=== PATIENT | female | born 1995 | race Caucasian/White ===

== ENCOUNTER 2016-05-27 18:27 | Emergency (ER) | payer SELFPAY | END 2016-05-27 20:25 | disposition left against medical advice (07) | LOC: ER 18:27 | DX: Z53.21 Procedure and treatment not carried out due to patient leaving prior to being seen by health care provider (principal) ==

== ENCOUNTER 2016-05-30 09:41 | Emergency (ER) | payer SELFPAY ==
[2016-05-30 10:07] VITALS: BP 92/65; TEMP 98.9; O2SAT 100
--- NOTE | 2016-05-30 10:07 | ED.PDOC ---
History of Present Illness - General Chief Complaint: GI Problem Stated Complaint: nausea, vomiting, fever Time Seen by Provider: 05/30/16 09:59 Source: patient Exam Limitations: no limitations - History of Present Illness Initial Comments: Patient presents with N/V that developed overnight. Her last episode was 5 hours ago. She was able to eat breakfast. She has some cramping pain that is umbilical, intermittent, non-radiating, and not associated with the N/V. No diarrhea. Vomitus is yellow and mucous-like. No previous abdominal surgeries. No similarly sick contacts. No new eating establishments, camping, nor travel. Patient said she called in to work this morning so she could take the day off and was told she needed a doctor's note. No other complaints. Timing/Duration: 4-6 hours Severity: mild Improving Factors: nothing Worsening Factors: nothing Associated Symptoms: nausea/vomiting Allergies/Adverse Reactions: Allergies NO KNOWN ALLERGY Allergy (Verified 10/31/15 21:29) Home Medications: Ambulatory Orders Amoxicillin & Pot Clavulanate [Augmentin Tab] 875 mg PO BID #20 tab 02/24/16 Montelukast Sodium [Singulair] 10 mg PO DAILY #30 tab 02/24/16 Ondansetron Tab [Zofran Tab] 4 mg PO Q6HR #7 tab 05/30/16 Review of Systems - Review of Systems Constitutional: States: no symptoms reported EENTM: States: no symptoms reported Respiratory: States: no symptoms reported Cardiology: States: no symptoms reported Gastrointestinal/Abdominal: States: see HPI Genitourinary: States: no symptoms reported Musculoskeletal: States: no symptoms reported Skin: States: no symptoms reported Neurological: States: no symptoms reported Endocrine: States: no symptoms reported Hematologic/Lymphatic: States: no symptoms reported Past Medical History (General) - Patient Medical History Hx Seizures: No Hx Stroke: No Hx Dementia: No Hx Asthma: No Hx of COPD: No Hx Cardiac Disorders: No Hx Congestive Heart Failure: No Hx Pacemaker: No Hx Hypertension: No Hx Thyroid Disease: No Hx Diabetes: No Hx Gastroesophageal Reflux: No Hx Renal Disease: No Hx Cancer: No Hx of HIV: No Hx Hepatitis C: No Hx MRSA: No - Vaccination History Hx Tetanus, Diphtheria Vaccination: No Hx Influenza Vaccination: No Hx Pneumococcal Vaccination: No - Social History Hx Tobacco Use: No Hx Chewing Tobacco Use: No Hx Alcohol Use: No Hx Substance Use: No Hx Substance Use Treatment: No Hx Depression: No Hx Physical Abuse: No Hx Emotional Abuse: No Hx Suspected Abuse: No - Female History Hx Last Menstrual Period: 10/19/15 Patient : No Expected Date of Delivery:: 11/28/14 Hx Gestational Age: 13 Family Medical History - Family History Maternal Family History: Unknown Hx Family Diabetes: Yes Hx Family;Other: aunt on mother side Brother Family History: No Known Living Status: Still Living Hx Family;Other: no problems Mother Family History: No Known Name: Cathy Age (years): 47 Living Status: Still Living Hx Family;Other: no medical problems Physical Exam - Physical Exam General Appearance: Alert Respiratory: lungs clear Cardiovascular/Chest: regular rate, rhythm Gastrointestinal/Abdominal: normal bowel sounds, non tender, soft, other - Negative Rovsing's sign. Negative Valentine's . NTTP. Negative obturator and psoas signs. Extremity: normal range of motion Skin Exam: normal color Lymphatic: no adenopathy Departure - Departure Clinical Impression: Gastroenteritis Disposition: Discharge to Home or Self Care Condition: Good Departure Forms: ED Discharge - Pt. Copy, Patient Portal Self Enrollment Diet: resume usual diet Prescriptions: Ondansetron Tab [Zofran Tab] 4 mg PO Q6HR #7 tab Home Medications: Ambulatory Orders Amoxicillin & Pot Clavulanate [Augmentin Tab] 875 mg PO BID #20 tab 02/24/16 Montelukast Sodium [Singulair] 10 mg PO DAILY #30 tab 02/24/16 Ondansetron Tab [Zofran Tab] 4 mg PO Q6HR #7 tab 05/30/16 Additional Instructions: Increase oral fluids. Return to ER if vomiting continues more than 48 hours without the development of diarrhea. Return to ER or your regular doctor if symptoms persist longer than 5 days.
== END 2016-05-30 10:20 | disposition home or self-care (01) ==
LOC: ER 09:41
DX: K52.9 Noninfective gastroenteritis and colitis, unspecified (principal)

== ENCOUNTER → 2016-07-08 | Outpatient (CLI) | payer OTHER ==
--- NOTE | 2016-07-08 12:40 | RAD ---
History: Pain. Pelvis: AP film is obtained. No bony abnormality or acute injury. Joint spaces appear well maintained. IUD is in place. Sacroiliac joints are normal. IMPRESSION: Negative pelvis. Right knee: AP, standing, lateral and sunrise views are obtained and compared with 2012 study. Large osteochondroma, questioned partially resected as it appears smaller since the prior film. No significant joint effusion. Joint spaces are well-maintained. IMPRESSION: Smaller osteochondroma since 2012, questioned surgical resection. No complication. Electronically signed by: Tatiana Mcginnis MD 07/08/2016 12:39 PM CDT
== END | disposition home or self-care (01) ==
LOC: RAD 08:01
PROVIDERS: ATTEND Orthopaedic Surgery
DX: M25.561 Pain in right knee (principal); M25.551 Pain in right hip

== ENCOUNTER → 2016-07-30 | Outpatient (CLI) | payer OTHER ==
--- NOTE | 2016-07-30 16:33 | MRI ---
MRI right knee without contrast INDICATION: Knee mass TECHNIQUE: Noncontrast MR imaging right knee standard protocol FINDINGS: There is distortion of the ACL from previous injury or related to the adjacent femoral deformity more likely. The PCL is intact. There is a flipped bucket-handle lateral meniscal tear with prominent meniscal tissue in the intercondylar region. Collateral ligaments are intact. Normal patellofemoral alignment. Moderate joint effusion. There is a large osteochondroma extending posteriorly from the distal femur. There is a dominant osteochondroma extending posterior medially. There appears to be an additional osteochondroma arising from the lateral margin of the base of the larger osteochondroma extending toward the joint abutting the cortex of the posterior margin lateral femoral condyle. This is an atypical morphology but does not appear aggressive or destructive. The cartilage cap on the larger posterior medial osteochondroma is approximately 3 mm thick. There is adjacent marrow edema which may be due to trauma/friction but follow-up imaging would be useful to exclude the less likely possibility of malignant degeneration within the large osteochondroma. There is no mass effect or displacement of the popliteal vessels. No additional internal derangement. The multifocal/irregular osteochondroma could be related to underlying multiple hereditary exostosis syndrome consider skeletal survey to assess for other lesions. IMPRESSION: Bucket-handle tear lateral meniscus right knee with moderate effusion Multifocal osteochondromas distal femur with edema within the larger posterior medial osteochondroma but no focal soft tissue mass or marked thickening of the cartilage cap see above discussion and recommendations Electronically signed by: Jw Villalba MD 07/30/2016 4:32 PM CDT
== END | disposition home or self-care (01) ==
LOC: MRI 06:58
PROVIDERS: ATTEND Orthopaedic Surgery
DX: S83.252A Bucket-handle tear of lateral meniscus, current injury, left knee, initial encounter (principal); X58.XXXA Exposure to other specified factors, initial encounter

== ENCOUNTER 2016-09-26 13:06 | Emergency (ER) | payer SELFPAY ==
[2016-09-26 13:17] VITALS: BP 102/61; TEMP 99.3
--- NOTE | 2016-09-26 13:49 | ED.PDOC ---
History of Present Illness - General Chief Complaint: ENT Problem Stated Complaint: sorethroat, fever Time Seen by Provider: 09/26/16 13:39 Source: patient Exam Limitations: no limitations - History of Present Illness Initial Comments: Patient presents with sore throat, fever, and body aches for three days. She denies runny nose or cough. She is not aware of sick contacts. She says that her lymph nodes are swollen. No other complaints. Timing/Duration: other - 3 days Severity: moderate Improving Factors: nothing Worsening Factors: nothing Associated Symptoms: fever/chills Allergies/Adverse Reactions: Allergies NO KNOWN ALLERGY Allergy (Verified 09/26/16 13:17) Home Medications: Ambulatory Orders Amoxicillin [Amoxil] 500 mg PO TID #30 cap 09/26/16 Review of Systems - Review of Systems Constitutional: States: fever EENTM: States: see HPI Respiratory: States: no symptoms reported Cardiology: States: no symptoms reported Gastrointestinal/Abdominal: States: no symptoms reported Genitourinary: States: no symptoms reported Musculoskeletal: States: no symptoms reported Skin: States: no symptoms reported Neurological: States: no symptoms reported Endocrine: States: no symptoms reported Hematologic/Lymphatic: States: no symptoms reported Past Medical History (General) - Patient Medical History Hx Seizures: No Hx Stroke: No Hx Dementia: No Hx Asthma: No Hx of COPD: No Hx Cardiac Disorders: No Hx Congestive Heart Failure: No Hx Pacemaker: No Hx Hypertension: No Hx Thyroid Disease: No Hx Diabetes: No Hx Gastroesophageal Reflux: No Hx Renal Disease: No Hx Cancer: No Hx of HIV: No Hx Hepatitis C: No Hx MRSA: No Surgical History: no surgical history - Vaccination History Hx Tetanus, Diphtheria Vaccination: No Hx Influenza Vaccination: No Hx Pneumococcal Vaccination: No - Social History Hx Tobacco Use: Yes Hx Chewing Tobacco Use: No Hx Alcohol Use: No Hx Substance Use: No Hx Substance Use Treatment: No Hx Depression: No Hx Physical Abuse: No Hx Emotional Abuse: No Hx Suspected Abuse: No - Activities of Daily Living Hospice Agency (if applicable):: None - Female History Patient is a Female of Child Bearing Age (10 -59 yrs old): Yes Hx Last Menstrual Period: 10/19/15 Patient : No Expected Date of Delivery:: 11/28/14 Hx Gestational Age: 13 Family Medical History - Family History Maternal Family History: Unknown Hx Family Diabetes: Yes Hx Family;Other: aunt on mother side Brother Family History: No Known Living Status: Still Living Hx Family;Other: no problems Mother Family History: No Known Name: Cathy Age (years): 47 Living Status: Still Living Hx Family;Other: no medical problems Physical Exam - Physical Exam General Appearance: Alert Ears, Nose, Throat: normal ENT inspection Neck: non-tender, full range of motion, supple Respiratory: lungs clear Cardiovascular/Chest: normal peripheral pulses, regular rate, rhythm Gastrointestinal/Abdominal: normal bowel sounds, non tender, soft Skin Exam: normal color Lymphatic: other - right anterior cervical LAD. NT. mobile, fluctuatnt, less than 1 cm Progress - Progress Progress: 09/26/16 13:49 Rapid strep positive. Patient opted for oral medications instead of IM. Departure - Departure Clinical Impression: Streptococcal pharyngitis Disposition: Discharge to Home or Self Care Condition: Good Departure Forms: ED Discharge - Pt. Copy, ED Discharge - Work Release, Patient Portal Self Enrollment Diet: resume usual diet Activity: increase activity as tolerated Referrals: America Barbosa NP [Primary Care Provider] - 1-2 Weeks Prescriptions: Amoxicillin [Amoxil] 500 mg PO TID #30 cap Home Medications: Ambulatory Orders Amoxicillin [Amoxil] 500 mg PO TID #30 cap 09/26/16 Additional Instructions: May use over the counter throat sprays or lozenges. Take prescription medication as directed. Wash hands before and after contact with others. Return to your regular doctor if symptoms have not resolved in 7-10 days.
[2016-09-26 13:59] VITALS: O2SAT 97
== END 2016-09-26 14:00 | disposition home or self-care (01) ==
LOC: ER 13:06
DX: J02.0 Streptococcal pharyngitis (principal); Z87.891 Personal history of nicotine dependence

== ENCOUNTER → 2016-10-21 | Outpatient (CLI) | payer OTHER | END | disposition home or self-care (01) | LOC: RESP 09:07 | PROVIDERS: ATTEND Orthopaedic Surgery | DX: Z01.818 Encounter for other preprocedural examination (principal) ==

== ENCOUNTER 2016-10-27 05:54 | Outpatient (CLI) | payer OTHER ==
[~2016-10-27 05:54] MED LIST: LACTATED RINGERS 1,000 ML ONE; SODIUM CHL 0.9% 50ML MIN-BAG+ 50 ML IVPB ONE; ceFAZolin SODIUM 1 GM VIAL ONE
[2016-10-27] MEDS ORDERED: VANCOMYCIN HCL INJ 1,000 MG VIAL IVPB ONE (06:15)
[2016-10-27] MEDS ORDERED: BUPIVACAINE 0.25% W/EPI 50 ML VIAL INJ ONE (06:15)
[2016-10-27] MEDS ORDERED: ceFAZolin SODIUM 1 GM VIAL ONE ×2 (06:15→06:16)
[2016-10-27] MEDS ORDERED: fentaNYL CITRATE INJ 50 MCG/ML AMP ONE (06:18)
[2016-10-27 07:34] VITALS: BP 104/74; TEMP 98.2; O2SAT 100
== END 2016-10-27 07:05 | disposition home or self-care (01) ==
LOC: AMB 05:54 → EDSTATUS 10:30
PROVIDERS: ATTEND Orthopaedic Surgery
DX: Z01.818 Encounter for other preprocedural examination (principal); D16.21 Benign neoplasm of long bones of right lower limb

== ENCOUNTER 2017-01-08 10:03 | Emergency (ER) | payer SELFPAY ==
[2017-01-08 10:31] VITALS: BP 109/72; TEMP 97.1; O2SAT 99
--- NOTE | 2017-01-08 10:45 | ED.PDOC ---
History of Present Illness - General Chief Complaint: General Stated Complaint: screening for chicken pox Time Seen by Provider: 01/08/17 10:05 Source: patient Exam Limitations: no limitations - History of Present Illness Initial Comments: the patient is a 21-year-old female presenting to the emergency room after having sustained a needle stick this morning while caring for patient. The patient is an 84-year-old male with no known history of hepatitis C, hepatitis B or HIV according to her sources. 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 The patient does currently have a shingles infection. This patient reports that she has had all her vaccines which would include the hepatitis B series as well as the varicella-zoster vaccine. The patient stuck herself with the needle that she used to give him his insulin with. It stuck her in the finger. She immediately rinsed off and cleaned off the area. His injection site did not bleed. Hers bled a very small amount. she herself does not have any history of hepatitis B, C or HIV either. given the history reported her on the patient she defers testing here today for HIV, hep B or hepatitis C. She states that she will get this done at her primary care doctor' s office. I have just reviewed the current CDC guidelines for post exposure prophylaxis. She is in a low risk category. It is still recommended that she get the patient tested as well, and herself retested in a couple of months. Timing/Duration: 1-3 hours Severity: mild Improving Factors: nothing Worsening Factors: nothing Associated Symptoms: denies symptoms Allergies/Adverse Reactions: Allergies NO KNOWN ALLERGY Allergy (Verified 01/08/17 10:31) Review of Systems - Review of Systems Constitutional: States: no symptoms reported EENTM: States: no symptoms reported Respiratory: States: no symptoms reported Cardiology: States: no symptoms reported Gastrointestinal/Abdominal: States: no symptoms reported Genitourinary: States: no symptoms reported Musculoskeletal: States: no symptoms reported Skin: States: see HPI Neurological: States: no symptoms reported Endocrine: States: no symptoms reported Past Medical History (General) - Patient Medical History Hx Seizures: No Hx Stroke: No Hx Dementia: No Hx Asthma: No Hx of COPD: No Hx Cardiac Disorders: No Hx Congestive Heart Failure: No Hx Pacemaker: No Hx Hypertension: No Hx Thyroid Disease: No Hx Diabetes: No Hx Gastroesophageal Reflux: No Hx Renal Disease: No Hx Cancer: No Hx of HIV: No Hx Hepatitis C: No Hx MRSA: No Surgical History: no surgical history - Vaccination History Hx Tetanus, Diphtheria Vaccination: No Hx Influenza Vaccination: No Hx Pneumococcal Vaccination: No - Social History Hx Tobacco Use: Yes Hx Chewing Tobacco Use: No Hx Alcohol Use: Yes - occasional Hx Substance Use: No Hx Substance Use Treatment: No Hx Depression: No Hx Physical Abuse: No Hx Emotional Abuse: No Hx Suspected Abuse: No - Female History Patient is a Female of Child Bearing Age (10 -59 yrs old): Yes Hx Last Menstrual Period: 10/19/15 Patient : No - has IUD Expected Date of Delivery:: 11/28/14 Hx Gestational Age: 13 Family Medical History - Family History Maternal Family History: Unknown Hx Family Diabetes: Yes Hx Family;Other: aunt on mother side Brother Family History: No Known Living Status: Still Living Hx Family;Other: no problems Mother Family History: No Known Name: Cathy Age (years): 47 Living Status: Still Living Hx Family;Other: no medical problems Physical Exam - Physical Exam General Appearance: Alert, Anxious, No apparent distress Eye Exam: bilateral normal Ears, Nose, Throat: hearing grossly normal, normal ENT inspection Neck: full range of motion Respiratory: no respiratory distress, no accessory muscle use Cardiovascular/Chest: no edema Peripheral Pulses: radial,right: 2+, radial,left: 2+ Extremity: normal range of motion, non-tender, normal inspection, normal capillary refill Neurologic: artist color separation II-XII nml as tested, alert, normal mood/affect, oriented x 3 Skin Exam: normal color Comments: Vital Signs - 24 hr 01/08/17 10:27 Temperature 97.1 F L Pulse Rate [ 99 H pulse ox] Respiratory 20 Rate Blood Pressure 109/72 [Right Arm] O2 Sat by Pulse 99 Oximetry Progress - Progress Progress: 01/08/17 10:47 the patient is a 21-year-old female presenting after a needlestick from a primary care patient that she attends to. The type of exposure itself is fairly low risk. It is recommended that her patient be tested for hepatitis B, hepatitis C and HIV for confirmation of the negative status. It is also recommended that she be tested for hepatitis B, hepatitis C and HIV as well as hepatitis B immunity. She should also be tested for any seroconversion within a couple of months. Given the reported risk factors, post exposure medications are not warranted in this patient, according to CDC guidelines. ER warnings were given. The patient does need to keep follow-up for testing with her primary are doctor. She defers testing here at this time. Departure - Departure Clinical Impression: Needle stick injury of finger Qualifiers: Encounter type: initial encounter Qualified Code(s): S61.239A - Puncture wound without foreign body of unspecified finger without damage to nail, initial encounter; W27.3XXA - Contact with needle (sewing), initial encounter Disposition: Discharge to Home or Self Care Condition: Fair Departure Forms: ED Discharge - Pt. Copy, Patient Portal Self Enrollment Diet: regular diet Activity: increase activity as tolerated Referrals: America Barbosa NP [Primary Care Provider] - 1-2 Weeks Additional Instructions: the patient is a 21-year-old female presenting after a needlestick from a primary care patient that she attends to. The type of exposure itself is fairly low risk. It is recommended that her patient be tested for hepatitis B, hepatitis C and HIV for confirmation of the negative status. It is also recommended that she be tested for hepatitis B, hepatitis C and HIV as well as hepatitis B immunity. She should also be tested for any seroconversion within a couple of months. Given the reported risk factors, post exposure medications are not warranted in this patient, according to CDC guidelines. ER warnings were given. The patient does need to keep follow-up for testing with her primary are doctor. She defers testing here at this time.
== END 2017-01-08 10:58 | disposition home or self-care (01) ==
LOC: ER 10:03
DX: S61.239A Puncture wound without foreign body of unspecified finger without damage to nail, initial encounter (principal); W46.0XXA Contact with hypodermic needle, initial encounter; Y92.89 Other specified places as the place of occurrence of the external cause; Y99.0 Civilian activity done for income or pay

== ENCOUNTER 2017-04-11 18:44 | Emergency (ER) | payer SELFPAY ==
--- NOTE | 2017-04-11 19:35 | ED.PDOC ---
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 THIS MORNING SHE NOTED A FEVER, HEADACHE, SORE THROAT AND MYALGIAS. SHE IS SUSPICIOUS THAT SHE MIGHT HAVE CONTRACTED THE F;U WELL. SHE RECEIVED NO VACCINATION. - History of Present Illness Timing/Duration: this morning Cough Quality/Degree: dry cough Possible Cause: no prior episodes Improving Factors: rest Worsening Factors: nothing Associated Symptoms: cough, fever/chills, muscle aches, nasal congestion Respiratory Risk Factors: other - EXPOSURE TO A PATIENT WITH FLU. Allergies/Adverse Reactions: Allergies NO KNOWN ALLERGY Allergy (Verified 01/08/17 10:31) Home Medications: Ambulatory Orders NK [NK] 04/11/17 Review of Systems - Review of Systems Constitutional: States: chills, fever EENTM: States: nose congestion, throat pain Respiratory: States: cough Cardiology: States: no symptoms reported Gastrointestinal/Abdominal: States: no symptoms reported Genitourinary: States: no symptoms reported Musculoskeletal: States: no symptoms reported Skin: States: no symptoms reported Neurological: States: no symptoms reported Endocrine: States: no symptoms reported Hematologic/Lymphatic: States: no symptoms reported All other Systems: Reviewed and Negative Past Medical History (General) - Patient Medical History Hx Seizures: No Hx Stroke: No Hx Dementia: No Hx Asthma: No Hx of COPD: No Hx Cardiac Disorders: No Hx Congestive Heart Failure: No Hx Pacemaker: No Hx Hypertension: No Hx Thyroid Disease: No Hx Diabetes: No Hx Gastroesophageal Reflux: No Hx Renal Disease: No Hx Cancer: No Hx of HIV: No Hx Hepatitis C: No Hx MRSA: No Surgical History: no surgical history - Vaccination History Hx Tetanus, Diphtheria Vaccination: No Hx Influenza Vaccination: No Hx Pneumococcal Vaccination: No - Social History Hx Tobacco Use: Yes Hx Chewing Tobacco Use: No Hx Alcohol Use: Yes - occasional Hx Substance Use: No Hx Substance Use Treatment: No Hx Depression: No Hx Physical Abuse: No Hx Emotional Abuse: No Hx Suspected Abuse: No - Female History Hx Last Menstrual Period: 10/19/15 Patient : No - has IUD Expected Date of Delivery:: 11/28/14 Hx Gestational Age: 13 Family Medical History - Family History Maternal Family History: Unknown Hx Family Diabetes: Yes Hx Family;Other: aunt on mother side Brother Family History: No Known Living Status: Still Living Hx Family;Other: no problems Mother Family History: No Known Name: Cathy Age (years): 47 Living Status: Still Living Hx Family;Other: no medical problems Physical Exam - Physical Exam General Appearance: Alert, Anxious, Well Developed, Well Groomed, Well Hydrated Eye Exam: bilateral normal ENT Exam: pharynx normal, nasal congestion Neck: non-tender, full range of motion, supple, normal inspection Respiratory: chest non-tender, lungs clear, normal breath sounds, no respiratory distress, no accessory muscle use Cardiovascular/Chest: normal peripheral pulses, regular rate, rhythm, no edema, no gallop, no JVD, no murmur Gastrointestinal/Abdominal: normal bowel sounds, non tender, soft, no organomegaly, no pulsatile mass Extremity: normal range of motion, non-tender, normal inspection Neurologic: no motor/sensory deficits, normal mood/affect, oriented x 3 Skin Exam: normal color Lymphatic: no adenopathy Progress - Progress Progress: 04/11/17 20:35 INFLUENZA TEST IS NEGATIVE. Departure - Departure Clinical Impression: Flu-like symptoms Time of Disposition: 20:37 Disposition: Discharge to Home or Self Care Condition: Good Departure Forms: ED Discharge - Pt. Copy, Patient Portal Self Enrollment Instructions: DI for Viral Syndrome Diet: resume usual diet Activity: increase activity as tolerated Referrals: Dominique Louis NP [Primary Care Provider] - 1-2 Weeks Home Medications: Ambulatory Orders NK [NK] 04/11/17
[2017-04-11 20:50] VITALS: BP 100/72; TEMP 100.9; O2SAT 99
== END 2017-04-11 20:50 | disposition home or self-care (01) ==
LOC: ER 18:44
DX: R50.9 Fever, unspecified (principal); R51 Headache; J02.9 Acute pharyngitis, unspecified; M79.1 Myalgia

== ENCOUNTER 2017-06-21 18:24 | Emergency (ER) | payer SELFPAY ==
[2017-06-21 18:37] VITALS: BP 112/79; TEMP 98.1; O2SAT 97
[2017-06-21] MEDS ORDERED: KETOROLAC TROMETHAMINE 10 MG TAB PO ONE (18:39)
[2017-06-21] MEDS ORDERED: CYCLOBENZAPRINE HCL 10 MG TAB PO ONE (18:40)
--- NOTE | 2017-06-21 18:44 | ED.PDOC ---
History of Present Illness - General Chief Complaint: Upper Extremity Injury Stated Complaint: right shoulder and right upper chest pain Time Seen by Provider: 06/21/17 18:38 Source: patient, RN notes reviewed, Vital Signs reviewed Exam Limitations: no limitations - History of Present Illness Occurred: yesterday Method of Injury: other - lifting boxes Improving Factors: immobilization Worsening Factors: movement Allergies/Adverse Reactions: Allergies NO KNOWN ALLERGY Allergy (Verified 01/08/17 10:31) Home Medications: Ambulatory Orders Cyclobenzaprine Tab (ER Disp) [Flexeril Tab (ER Dispense)] 10 mg PO TID PRN 5 Days #15 tab 06/21/17 Ketorolac Tromethamine [Toradol Tabs] 10 mg PO Q6HR PRN #20 tab 06/21/17 Review of Systems - Review of Systems Constitutional: States: no symptoms reported EENTM: States: no symptoms reported Respiratory: States: no symptoms reported Cardiology: States: no symptoms reported Gastrointestinal/Abdominal: States: no symptoms reported Genitourinary: States: no symptoms reported Musculoskeletal: States: joint pain, muscle pain, other - anterior chest wall pain right upper Skin: States: no symptoms reported Neurological: States: no symptoms reported Endocrine: States: no symptoms reported Past Medical History (General) - Patient Medical History Hx Seizures: No Hx Stroke: No Hx Dementia: No Hx Asthma: No Hx of COPD: No Hx Cardiac Disorders: No Hx Congestive Heart Failure: No Hx Pacemaker: No Hx Hypertension: No Hx Thyroid Disease: No Hx Diabetes: No Hx Gastroesophageal Reflux: No Hx Renal Disease: No Hx Cancer: No Hx of HIV: No Hx Hepatitis C: No Hx MRSA: No Surgical History: no surgical history - Vaccination History Hx Tetanus, Diphtheria Vaccination: No Hx Influenza Vaccination: No Hx Pneumococcal Vaccination: No - Social History Hx Tobacco Use: Yes Hx Chewing Tobacco Use: No Hx Alcohol Use: Yes - occasional Hx Substance Use: No Hx Substance Use Treatment: No Hx Depression: No Hx Physical Abuse: No Hx Emotional Abuse: No Hx Suspected Abuse: No - Female History Patient is a Female of Child Bearing Age (10 -59 yrs old): Yes Hx Last Menstrual Period: 10/19/15 Patient : No - has IUD Expected Date of Delivery:: 11/28/14 Hx Gestational Age: 13 Family Medical History - Family History Maternal Family History: Unknown Hx Family Diabetes: Yes Hx Family;Other: aunt on mother side Brother Family History: No Known Living Status: Still Living Hx Family;Other: no problems Mother Family History: No Known Name: Cathy Age (years): 47 Living Status: Still Living Hx Family;Other: no medical problems Physical Exam - Physical Exam General Appearance: Alert, No apparent distress, Well Developed, Well Groomed, Well Hydrated, Well Nourished Eyes, Ears, Nose, Throat Exam: PERRL/EOMI, normal ENT inspection Neck: non-tender, full range of motion, supple, normal inspection Cardiovascular/Respiratory: regular rate, rhythm Back Exam: muscle spasm Shoulder Exam: normal inspection, normal ROM - normal passive, painful active, pain Elbow/Forearm Exam: normal inspection, non-tender, no evidence of injury, normal ROM Wrist Exam: normal inspection, non-tender, no evidence of injury, normal ROM Hand Exam: normal inspection, non-tender, no evidence of injury, normal ROM Neuro/Tendon: normal sensation, normal motor functions, normal tendon functions , responds to pain, no evidence tendon injury Mental Status: alert, oriented x 3 Skin Exam: normal color, warm/dry Departure - Departure Clinical Impression: Spasm Muscle strain of chest wall Qualifiers: Encounter type: initial encounter Qualified Code(s): S29.011A - Strain of muscle and tendon of front wall of thorax, initial encounter Time of Disposition: 18:45 Disposition: Discharge to Home or Self Care Condition: Excellent Departure Forms: ED Discharge - Pt. Copy, Patient Portal Self Enrollment Instructions: DI for Arm Pain, Muscle Strain Diet: resume usual diet Activity: increase activity as tolerated Referrals: Dominique Louis NP [Primary Care Provider] - 1-2 Weeks Prescriptions: Ketorolac Tromethamine [Toradol Tabs] 10 mg PO Q6HR PRN #20 tab PRN Reason: Pain Cyclobenzaprine Tab (ER Disp) [Flexeril Tab (ER Dispense)] 10 mg PO TID PRN 5 Days #15 tab PRN Reason: Pain Home Medications: Ambulatory Orders Cyclobenzaprine Tab (ER Disp) [Flexeril Tab (ER Dispense)] 10 mg PO TID PRN 5 Days #15 tab 06/21/17 Ketorolac Tromethamine [Toradol Tabs] 10 mg PO Q6HR PRN #20 tab 06/21/17
== END 2017-06-21 18:52 | disposition home or self-care (01) ==
LOC: ER 18:24
DX: S29.011A Strain of muscle and tendon of front wall of thorax, initial encounter (principal); R25.2 Cramp and spasm; Z87.891 Personal history of nicotine dependence; X50.0XXA Overexertion from strenuous movement or load, initial encounter

== ENCOUNTER 2017-09-07 10:41 | Emergency (ER) | payer SELFPAY ==
[2017-09-07 11:21] VITALS: TEMP 99.9
[2017-09-07] MEDS ORDERED: IBUPROFEN 200 MG TAB PO ONE (11:32)
[2017-09-07] MEDS ORDERED: AZITHROMYCIN 250 MG TAB PO ONE (12:50)
[2017-09-07] MEDS ORDERED: cefTRIAXone SODIUM 1 GM VIAL IM ONE (12:50)
--- NOTE | 2017-09-07 12:55 | ED.PDOC ---
History of Present Illness - General Chief Complaint: ENT Problem Stated Complaint: body aches and sore throat Time Seen by Provider: 09/07/17 11:26 Source: patient Exam Limitations: no limitations - History of Present Illness Initial Comments: the patient is a 22-year-old female presenting to the emergency room secondary to subjective fever along with a sore throat and a mild cough and a mild runny nose. She does have a mild headache. No altered mental status. No nuchal rigidity. This all started this morning. No nausea or vomiting. The worst symptom is sore throat. The patient is very thin. She reports she has always been very thin. She does not know what her blood pressure normally runs. Timing/Duration: 4-6 hours Severity: moderate Improving Factors: nothing Worsening Factors: nothing Associated Symptoms: denies symptoms Allergies/Adverse Reactions: Allergies NO KNOWN ALLERGY Allergy (Verified 09/07/17 11:21) Home Medications: Ambulatory Orders Cyclobenzaprine Tab (ER Disp) [Flexeril Tab (ER Dispense)] 10 mg PO TID PRN 5 Days #15 tab 06/21/17 Ketorolac Tromethamine [Toradol Tabs] 10 mg PO Q6HR PRN #20 tab 06/21/17 Azithromycin 250 mg PO DAILY #5 tab 09/07/17 Review of Systems - Review of Systems Constitutional: States: fever, malaise EENTM: States: nose congestion, throat pain Respiratory: States: cough Cardiology: States: no symptoms reported Gastrointestinal/Abdominal: States: no symptoms reported Genitourinary: States: no symptoms reported Musculoskeletal: States: no symptoms reported Skin: States: no symptoms reported Neurological: States: headache Endocrine: States: no symptoms reported All other Systems: No Change from Baseline Past Medical History (General) - Patient Medical History Hx Seizures: No Hx Stroke: No Hx Dementia: No Hx Asthma: No Hx of COPD: No Hx Cardiac Disorders: No Hx Congestive Heart Failure: No Hx Pacemaker: No Hx Hypertension: No Hx Thyroid Disease: No Hx Diabetes: No Hx Gastroesophageal Reflux: No Hx Renal Disease: No Hx Cancer: No Hx of HIV: No Hx Hepatitis C: No Hx MRSA: No Surgical History: no surgical history - Vaccination History Hx Tetanus, Diphtheria Vaccination: No Hx Influenza Vaccination: No Hx Pneumococcal Vaccination: No - Social History Hx Tobacco Use: Yes Hx Chewing Tobacco Use: No Hx Alcohol Use: Yes - occasional Hx Substance Use: No Hx Substance Use Treatment: No Hx Depression: No Hx Physical Abuse: No Hx Emotional Abuse: No Hx Suspected Abuse: No - Female History Patient is a Female of Child Bearing Age (10 -59 yrs old): Yes Hx Last Menstrual Period: 10/19/15 Patient : No - has IUD Expected Date of Delivery:: 11/28/14 Hx Gestational Age: 13 - Triage Comment ED Triage Comment: LMP one week ago. Merana control Family Medical History - Family History Maternal Family History: Unknown Hx Family Diabetes: Yes Hx Family;Other: aunt on mother side Brother Family History: No Known Living Status: Still Living Hx Family;Other: no problems Mother Family History: No Known Name: Cathy Age (years): 47 Living Status: Still Living Hx Family;Other: no medical problems Physical Exam - Physical Exam General Appearance: Alert, Comfortable, No apparent distress Eye Exam: bilateral normal Ears, Nose, Throat: nasal congestion, pharyngeal erythema Neck: full range of motion, supple Respiratory: lungs clear, normal breath sounds, no respiratory distress, no accessory muscle use Cardiovascular/Chest: normal peripheral pulses, regular rate, rhythm, no edema Peripheral Pulses: radial,right: 2+, radial,left: 2+ Gastrointestinal/Abdominal: non tender, soft Rectal Exam: deferred Back Exam: normal inspection, no CVA tenderness Extremity: normal range of motion, non-tender, normal inspection, no calf tenderness, normal capillary refill Neurologic: senior principal II-XII nml as tested, alert, normal mood/affect, oriented x 3 Skin Exam: normal color Comments: Vital Signs - 24 hr 09/07/17 11:15 Temperature 99.9 F H Pulse Rate [ 80 pulse ox] Respiratory 20 Rate Blood Pressure 82/52 [Left Arm] O2 Sat by Pulse 96 Oximetry repeat systolic blood pressure was greater than 100. Progress - Progress Progress: 09/07/17 12:56 the patient is a 22-year-old female presenting to the emergency room secondary to symptoms of pharyngitis primarily with associated low-grade fever and a headache. The patient has tested negative for strep. While this is most likely of a viral origin we will cover for other potential bacterial sources with a shot of Rocephin here and 5 days of oral azithromycin as an outpatient. She should keep herself well hydrated. Use Motrin and Tylenol keep any fever down. Additionally long-term she does need to gain weight for her own health benefit. It would be good for her to check her blood pressures periodically to get a baseline of what her baseline blood pressures are. Blood pressures are borderline low here today, however that is likely related to her low body mass. No evidence of sepsis currently. The patient should follow up with her primary care doctor later this week. Departure - Departure Clinical Impression: Pharyngitis Qualifiers: Pharyngitis/tonsillitis etiology: unspecified etiology Qualified Code(s): J02.9 - Acute pharyngitis, unspecified Disposition: Discharge to Home or Self Care Condition: Fair Departure Forms: ED Discharge - Pt. Copy, Patient Portal Self Enrollment Instructions: DI for Pharyngitis/Tonsillopharyngitis -- Adult Diet: regular diet Activity: increase activity as tolerated Referrals: Dominique Louis POLISH COMPOUNDER [Primary Care Provider] - 1-2 Weeks Prescriptions: Azithromycin 250 mg PO DAILY #5 tab Home Medications: Ambulatory Orders Cyclobenzaprine Tab (ER Disp) [Flexeril Tab (ER Dispense)] 10 mg PO TID PRN 5 Days #15 tab 06/21/17 Ketorolac Tromethamine [Toradol Tabs] 10 mg PO Q6HR PRN #20 tab 06/21/17 Azithromycin 250 mg PO DAILY #5 tab 09/07/17 Additional Instructions: the patient is a 22-year-old female presenting to the emergency room secondary to symptoms of pharyngitis primarily with associated low-grade fever and a headache. The patient has tested negative for strep. While this is most likely of a viral origin we will cover for other potential bacterial sources with a shot of Rocephin here and 5 days of oral azithromycin as an outpatient. She should keep herself well hydrated. Use Motrin and Tylenol keep any fever down. Additionally long-term she does need to gain weight for her own health benefit. It would be good for her to check her blood pressures periodically to get a baseline of what her baseline blood pressures are. Blood pressures are borderline low here today, however that is likely related to her low body mass. No evidence of sepsis currently. The patient should follow up with her primary care doctor later this week.
[2017-09-07] MEDS ORDERED: LIDOCAINE 1% 10 ML VIAL INJ ONE (12:57)
[2017-09-07 13:46] VITALS: BP 98/58; O2SAT 100
== END 2017-09-07 13:20 | disposition home or self-care (01) ==
LOC: ER 10:41
DX: J02.9 Acute pharyngitis, unspecified (principal)
CPT/HCPCS: 87070; 87880; 96372; 99284; J0696; Q0144

== ENCOUNTER 2017-11-13 11:23 | Emergency (ER) | payer SELFPAY ==
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
--- NOTE | 2017-11-13 12:57 | RAD ---
PROCEDURE: Chest,2 Views CLINICAL HISTORY: chest pain INDICATION: Same as above COMPARISON: None TECHNIQUE: PA and and lateral chest radiographs were obtained. FINDINGS: There is no gross evidence of acute thoracic bony trauma There are no discrete airspace infiltrates, pneumothoraces or pleural effusions. The pulmonary vascularity is normal The cardiomediastinal silhouette is unremarkable for patient's age and sex. IMPRESSION: There is no acute pleural-parenchymal process seen in the imaged lung meehan. Place of interpretation: [facility]. Electronically signed by: Wilton Lemons MD 11/13/2017 12:55 PM CDT Workstation: [id number]
[2017-11-13] MEDS: HYDROcodone 5MG/APAP 325MG 1 EA TAB PO ONE ×2 (13:34→13:35)
[2017-11-13 13:49] VITALS: BP 112/72; TEMP 98; O2SAT 98
== END 2017-11-13 13:35 | disposition home or self-care (01) ==
LOC: ER 11:23
DX: S16.1XXA Strain of muscle, fascia and tendon at neck level, initial encounter (principal); R07.9 Chest pain, unspecified; R51 Headache; Z87.891 Personal history of nicotine dependence; Y09 Assault by unspecified means; Y92.9 Unspecified place or not applicable

== ENCOUNTER 2018-06-18 11:28 | Emergency (ER) | payer SELFPAY ==
[2018-06-18 11:39] VITALS: BP 99/67; TEMP 99; O2SAT 99
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
[2018-06-18] MEDS ORDERED: AMOXICILLIN & POT CLAVULANATE 875 MG TAB PO ONE (11:55)
[2018-06-18] MEDS ORDERED: HYDROCOD/APAP 7.5/325 (ER DISP) #3 TAB PO ONE (11:55)
[2018-06-18] MEDS ORDERED: HYDROcodone 7.5MG/APAP 325MG 1 EA TAB ONE (11:56)
[2018-06-18] MEDS ORDERED: HYDROcodone 7.5MG/APAP 325MG 1 EA TAB PO ONE (11:57)
== END 2018-06-18 12:16 | disposition home or self-care (01) ==
LOC: ER 11:28
DX: K04.7 Periapical abscess without sinus (principal)

== ENCOUNTER 2018-10-19 21:45 | Emergency (ER) | payer SELFPAY ==
--- NOTE | 2018-10-19 22:19 | ED.PDOC ---
History of Present Illness - General Chief Complaint: Skin/Abrasion/Tear Stated Complaint: pain left elbow Time Seen by Provider: 10/19/18 22:13 Source: patient Exam Limitations: no limitations - History of Present Illness Initial Comments: Nohemy Feldman 23 y/o female came to ER with redness/pain left elbow since yesterday evening but this AM tried to pull out looks like thorn on his left elbow this afternoon nothing came out but felt more pain and redness started tonight.DENIES INJURY TO LEFT ELBOW Occurred: yesterday Severity: mild Pain Location: upper extremity - left elbow Method of Injury: unknown Improving Factors: rest Worsening Factors: movement Loss of Consciousness: no loss of consciousness Associated Symptoms (Fall): denies symptoms Allergies/Adverse Reactions: Allergies NO KNOWN ALLERGY Allergy (Verified 10/19/18 22:37) Home Medications: Ambulatory Orders Acetamin W/Cod #3 Tab [Tylenol w/CODEINE #3] 1 ea PO Q6HR PRN #40 tab 06/18/18 Amoxicillin [Amoxil] 500 mg PO Q8HRS #30 cap 06/18/18 Control Pill 06/18/18 Clindamycin HCl 150 mg PO TID 7 Days #21 cap 10/19/18 Review of Systems - Review of Systems Skin: States: see HPI All other Systems: Reviewed and Negative, No Change from Baseline Past Medical History (General) - Patient Medical History Hx Seizures: No Hx Stroke: No Hx Dementia: No Hx Asthma: No Hx of COPD: No Hx Cardiac Disorders: No Hx Congestive Heart Failure: No Hx Pacemaker: No Hx Hypertension: No Hx Thyroid Disease: No Hx Diabetes: No Hx Gastroesophageal Reflux: No Hx Renal Disease: No Hx Cancer: No Hx of HIV: No Hx Hepatitis C: No Hx MRSA: No - Vaccination History Hx Tetanus, Diphtheria Vaccination: No Hx Influenza Vaccination: No Hx Pneumococcal Vaccination: No - Social History Hx Tobacco Use: Yes Hx Chewing Tobacco Use: No Hx Alcohol Use: Yes - occasional Hx Substance Use: No Hx Substance Use Treatment: No Hx Depression: No Hx Physical Abuse: No Hx Emotional Abuse: No Hx Suspected Abuse: No - Female History Hx Last Menstrual Period: 09/13/18 Patient : Yes Expected Date of Delivery:: 06/20/19 Hx Gestational Age: 5 Family Medical History - Family History Maternal Family History: Unknown Hx Family Diabetes: Yes Hx Family;Other: aunt on mother side Brother Family History: No Known Living Status: Still Living Hx Family;Other: no problems Mother Family History: No Known Name: Cathy Age (years): 47 Living Status: Still Living Hx Family;Other: no medical problems Physical Exam - Physical Exam General Appearance: Alert, Comfortable, No apparent distress Head Injury: no evidence of injury Eye Exam: bilateral normal ENT Exam: hearing grossly normal Neck Exam: non-tender, normal alignment, normal inspection Cardiovascular/Respiratory: regular rate, rhythm, no M/R/G Gastrointestinal/Abdominal: normal bowel sounds, non tender, soft, no organomegaly Back Exam: no CVA tenderness, no vertebral tenderness Neurologic: alert, oriented x 3 Skin Exam: normal color, warm/dry - [place] Coma Score Best Eye Response ([place]): (4) open spontaneously Best Verbal Response ([place]): (5) oriented Best Motor Response ([place]): (6) obeys commands [place] Total: 15 Progress - Progress Progress: 10/19/18 23:05 Vital Signs - 8 hr 10/19/18 22:10 Temperature 98.9 F Pulse Rate [ 73 monitor] Respiratory 16 Rate Blood Pressure 105/65 [Left Arm] O2 Sat by Pulse 100 Oximetry - Results/Orders Results/Orders: Laboratory Results - last 24 hr 10/19/18 22:19 Urine HCG, Qual Positive Departure - Departure Clinical Impression: Cellulitis of skin Qualifiers: Weeks of gestation: less than 8 weeks Qualified Code(s): Z3A.01 - Less than 8 weeks gestation of Time of Disposition: 23:39 Disposition: Discharge to Home or Self Care Condition: Good Departure Forms: ED Discharge - Pt. Copy, Patient Portal Self Enrollment Instructions: Cellulitis (Skin Infection), Adult (DC) Referrals: Dominique Louis NP [Primary Care Provider] - 1-2 Weeks Prescriptions: Clindamycin HCl 150 mg PO TID 7 Days #21 cap Home Medications: Ambulatory Orders Acetamin W/Cod #3 Tab [Tylenol w/CODEINE #3] 1 ea PO Q6HR PRN #40 tab 06/18/18 Amoxicillin [Amoxil] 500 mg PO Q8HRS #30 cap 06/18/18 Control Pill 06/18/18 Clindamycin HCl 150 mg PO TID 7 Days #21 cap 07/11/19 Additional Instructions: Return to Emergency Room as needed;Follow up with primary Md 23 October 2018 for recheck;Need to follow up with GUIDANCE SECRETARY MANASA for Care;Need to start taking vitamins one daily over the counter
[2018-10-19 22:38] VITALS: TEMP 98.9; O2SAT 100
[2018-10-19] MEDS ORDERED: CLINDAMYCIN HCL CAP 150 MG CAP PO ONE (23:36)
[2018-10-19] MEDS ORDERED: CLINDAMYCIN PHOSPHATE 150 MG/ML VIAL IM ONE (23:36)
[2018-10-19] MEDS ORDERED: HYDROCOD/APAP 5/325 (ER DISP) #3 TAB PO ONE (23:40)
[2018-10-20 00:24] VITALS: BP 107/63
== END 2018-10-20 00:23 | disposition home or self-care (01) ==
LOC: ER 21:45
DX: O98.811 Other maternal infectious and parasitic diseases complicating pregnancy, first trimester (principal); L03.114 Cellulitis of left upper limb; Z3A.01 Less than 8 weeks gestation of pregnancy; Z87.891 Personal history of nicotine dependence

== ENCOUNTER 2018-10-21 23:22 | Emergency (ER) | payer SELFPAY ==
[2018-10-21] MEDS ORDERED: ACETAMINOPHEN-CAFF-BUTALBITAL 1 EA TAB PO ONE (23:42)
--- NOTE | 2018-10-21 23:45 | ED.PDOC ---
History of Present Illness - General Chief Complaint: Skin/Abrasion/Tear Stated Complaint: Abcess left elbow Time Seen by Provider: 10/21/18 23:42 Source: patient Exam Limitations: no limitations - History of Present Illness Initial Comments: the patient is a 23-year-old female presenting to the emergency room secondary to a small skin abscess to the left elbow. It does not appear to extend into the olecranon bursa. It does not extend into the elbow joint itself. No fever. She was started on antibiotics about 3 days ago but has only taken 1 day worth. She is . No evidence of sepsis. Severity: moderate Improving Factors: nothing Worsening Factors: nothing Associated Symptoms: denies symptoms Allergies/Adverse Reactions: Allergies NO KNOWN ALLERGY Allergy (Verified 10/19/18 22:37) Home Medications: Ambulatory Orders Acetamin W/Cod #3 Tab [Tylenol w/CODEINE #3] 1 ea PO Q6HR PRN #40 tab 06/18/18 Amoxicillin [Amoxil] 500 mg PO Q8HRS #30 cap 06/18/18 Control Pill 06/18/18 Clindamycin HCl 150 mg PO TID 7 Days #21 cap 10/19/18 Review of Systems - Review of Systems Constitutional: States: no symptoms reported EENTM: States: no symptoms reported Respiratory: States: no symptoms reported Cardiology: States: no symptoms reported Gastrointestinal/Abdominal: States: no symptoms reported Genitourinary: States: no symptoms reported Musculoskeletal: States: no symptoms reported Skin: States: see HPI Neurological: States: no symptoms reported Endocrine: States: no symptoms reported All other Systems: No Change from Baseline Past Medical History (General) - Patient Medical History Hx Seizures: No Hx Stroke: No Hx Dementia: No Hx Asthma: No Hx of COPD: No Hx Cardiac Disorders: No Hx Congestive Heart Failure: No Hx Pacemaker: No Hx Hypertension: No Hx Thyroid Disease: No Hx Diabetes: No Hx Gastroesophageal Reflux: No Hx Renal Disease: No Hx Cancer: No Hx of HIV: No Hx Hepatitis C: No Hx MRSA: No - Vaccination History Hx Tetanus, Diphtheria Vaccination: No Hx Influenza Vaccination: No Hx Pneumococcal Vaccination: No - Social History Hx Tobacco Use: Yes Hx Chewing Tobacco Use: No Hx Alcohol Use: Yes - occasional Hx Substance Use: No Hx Substance Use Treatment: No Hx Depression: No Hx Physical Abuse: No Hx Emotional Abuse: No Hx Suspected Abuse: No - Female History Hx Last Menstrual Period: 09/13/18 Patient : Yes Expected Date of Delivery:: 06/20/19 Hx Gestational Age: 5 Family Medical History - Family History Maternal Family History: Unknown Hx Family Diabetes: Yes Hx Family;Other: aunt on mother side Brother Family History: No Known Living Status: Still Living Hx Family;Other: no problems Mother Family History: No Known Name: Cathy Age (years): 47 Living Status: Still Living Hx Family;Other: no medical problems Physical Exam - Physical Exam General Appearance: Alert, Comfortable, No apparent distress Eye Exam: bilateral normal Ears, Nose, Throat: hearing grossly normal, normal ENT inspection Neck: full range of motion Respiratory: no respiratory distress, no accessory muscle use Cardiovascular/Chest: normal peripheral pulses, no edema Peripheral Pulses: radial,right: 2+, radial,left: 2+ Gastrointestinal/Abdominal: non tender, soft Rectal Exam: deferred Extremity: normal range of motion, non-tender, no pedal edema, normal capillary refill Neurologic: parcel post order clerk II-XII nml as tested, alert, normal mood/affect, oriented x 3 Skin Exam: normal color - erythema over the left elbow with small punctate abscess. Progress - Progress Progress: 10/21/18 23:44 the patient is a 23-year-old female presenting with a small abscess in the skin over the left elbow. This was cleaned with alcohol and then I&D with an 18-gauge needle. A very small amount of pus was obtained. She is to wash this several times daily with an antibacterial soap and water. She needs to continue her clindamycin. she was given 1 dose of Fioricet here for discomfort. ER warnings were given. Keep routine follow-up with DEPUTY INSURANCE COMMISSIONER. Departure - Departure Clinical Impression: Abscess Disposition: Discharge to Home or Self Care Condition: Fair Departure Forms: ED Discharge - Pt. Copy, Patient Portal Self Enrollment Instructions: DI for Wound Infection Diet: regular diet Activity: increase activity as tolerated Referrals: Dominique Louis NP [Primary Care Provider] - 1-2 Weeks Home Medications: Ambulatory Orders Acetamin W/Cod #3 Tab [Tylenol w/CODEINE #3] 1 ea PO Q6HR PRN #40 tab 06/18/18 Amoxicillin [Amoxil] 500 mg PO Q8HRS #30 cap 06/18/18 Control Pill 06/18/18 Clindamycin HCl 150 mg PO TID 7 Days #21 cap 10/19/18 Additional Instructions: the patient is a 23-year-old female presenting with a small abscess in the skin over the left elbow. This was cleaned with alcohol and then I&D with an 18-gauge needle. A very small amount of pus was obtained. She is to wash this several times daily with an antibacterial soap and water. She needs to continue her clindamycin. she was given 1 dose of Fioricet here for discomfort. ER warnings were given. Keep routine follow-up with DEPUTY INSURANCE COMMISSIONER.
[2018-10-21 23:50] VITALS: BP 108/64; TEMP 98.7; O2SAT 100
== END 2018-10-22 00:02 | disposition home or self-care (01) ==
LOC: ER 23:22
DX: O98.819 Other maternal infectious and parasitic diseases complicating pregnancy, unspecified trimester (principal); L03.114 Cellulitis of left upper limb; Z87.891 Personal history of nicotine dependence; Z3A.00 Weeks of gestation of pregnancy not specified

== ENCOUNTER 2018-11-12 03:46 | Emergency (ER) | payer OTHER ==
[2018-11-12 04:02] VITALS: TEMP 98.2
[2018-11-12] MEDS ORDERED: LIDOCAINE 1% 10 ML VIAL INJ ONE (04:13)
[2018-11-12] MEDS ORDERED: IODOFORM 1/4 INCH 1 EA BTTL TOP ONE (04:13)
[2018-11-12] MEDS ORDERED: POVIDONE IODINE 10 % 15 ML UD TOP ONE (04:31)
--- NOTE | 2018-11-12 05:11 | ED.PDOC ---
History of Present Illness - General Chief Complaint: Skin/Abrasion/Tear Stated Complaint: right armpit abcess Time Seen by Provider: 11/12/18 04:07 Source: patient Exam Limitations: other - exceptionally histrionic behavior - History of Present Illness Initial Comments: Patient presents with an abscess in her right armpit for 3 days. She says that she was started on Bactrim after a susceptibility report from an OSH showed MRSA that was only sensitive to Bactrim. She also had an abscess on the left elbow that went through I and D 3 weeks ago. She says she is and that her fire patrol said it was o.k. for her to have the Bactrim. She claims that she could not sleep tonight because of the pain so she drove herself up here. No known fevers. No other complaints. Patient is very adamant about getting treated with a narcotic that is "better than morphine". Timing/Duration: other - 3 days Severity: moderate Improving Factors: nothing Worsening Factors: nothing Associated Symptoms: denies symptoms Allergies/Adverse Reactions: Allergies NO KNOWN ALLERGY Allergy (Verified 11/12/18 04:02) Home Medications: Ambulatory Orders Acetamin W/Cod #3 Tab [Tylenol w/CODEINE #3] 1 ea PO Q6HR PRN #40 tab 06/18/18 Amoxicillin [Amoxil] 500 mg PO Q8HRS #30 cap 06/18/18 Control Pill 06/18/18 Clindamycin HCl 150 mg PO TID 7 Days #21 cap 10/19/18 Review of Systems - Review of Systems Constitutional: States: no symptoms reported EENTM: States: no symptoms reported Respiratory: States: no symptoms reported Cardiology: States: no symptoms reported Gastrointestinal/Abdominal: States: no symptoms reported Genitourinary: States: no symptoms reported Musculoskeletal: States: no symptoms reported Skin: States: see HPI - as in HPI Neurological: States: no symptoms reported Endocrine: States: no symptoms reported Hematologic/Lymphatic: States: no symptoms reported Past Medical History (General) - Patient Medical History Hx Seizures: No Hx Stroke: No Hx Dementia: No Hx Asthma: No Hx of COPD: No Hx Cardiac Disorders: No Hx Congestive Heart Failure: No Hx Pacemaker: No Hx Hypertension: No Hx Thyroid Disease: No Hx Diabetes: No Hx Gastroesophageal Reflux: No Hx Renal Disease: No Hx Cancer: No Hx of HIV: No Hx Hepatitis C: No Hx MRSA: No Surgical History: no surgical history - Vaccination History Hx Tetanus, Diphtheria Vaccination: No Hx Influenza Vaccination: No Hx Pneumococcal Vaccination: No - Social History Hx Tobacco Use: Yes Hx Chewing Tobacco Use: No Hx Alcohol Use: Yes - occasional Hx Substance Use: No Hx Substance Use Treatment: No Hx Depression: No Hx Physical Abuse: No Hx Emotional Abuse: No Hx Suspected Abuse: No - Female History Patient is a Female of Child Bearing Age (10 -59 yrs old): Yes Hx Last Menstrual Period: 09/13/18 Patient : Yes Expected Date of Delivery:: 06/20/19 Hx Gestational Age: 8 Family Medical History - Family History Maternal Family History: Unknown Hx Family Diabetes: Yes Hx Family;Other: aunt on mother side Brother Family History: No Known Living Status: Still Living Hx Family;Other: no problems Mother Family History: No Known Name: Cathy Age (years): 47 Living Status: Still Living Hx Family;Other: no medical problems Physical Exam - Physical Exam General Appearance: Alert Neck: non-tender, full range of motion, supple Respiratory: lungs clear, normal breath sounds Cardiovascular/Chest: normal peripheral pulses, regular rate, rhythm Gastrointestinal/Abdominal: normal bowel sounds, non tender, soft Skin Exam: other - golf ball size abscess in the right axilla. No surrounding cellulitis. Fluctuant, mobile , and fluid filled. No erythema. Lymphatic: no adenopathy Progress - Progress Progress: 11/12/18 05:15 The abscess area was prepped and draped in a sterile fashion. 10 cc of lidocaine with epinephrine was injected around the abscess edges. Patient screamed and cursed at staff during the lidocaine injection phase. Testing the site with a blunt probe elicited loud expletives and jerking from the patient. When a probe attempt was feigned, the patient still screamed and cursed. 1 cm incision made with #11 blade into the center of the lesion. Purulence was drained. Cultures taken and sent. The patient was given several rest periods to allow her to collect herself. It was impossible to drain purulence when the patient was jerking and screaming. After a second rest period, 5 more cc of lidocaine with epinephrine was used around the lesion edges. Patient continued to move and jerk when instructed not to and this resulted in iodine and blood getting on her shirt sleeve. She was notified of this and she said it didn't matter because it was a "sleep shirt". The abscess area was sterilized with iodine 5 different times due to patient moving and exposing the site to clothing, the bed, and other parts of her arms. Curved hemostats were used to break up loculations. The patient was allowed another rest period of several minutes since she was screaming and using expletives. While staff was not in the room, she calmed down quickly and would look out into the hallway with a calm demeanor waiting for staff to come back in. When we did, she started the wailing before she was touched with any instrumentation. She agreed to let me try to pack the wound. About 7 cm of 1/4 inch iodoform gauze was inserted into the drainage site but at that point the patient was screaming and thrashing so much that further treatment was not safe nor possible. Still, the abscess was drained until no more purulence could be expressed and packed until no more packing could be inserted. Patient was instructed to follow up with her pcp on Tuesday. Care instructions given. E.R. warnings given. Questions were elicited and answered. Patient voiced understanding and agreement with the plan. The patient did not have any clinical signs of systemic disease. Departure - Departure Clinical Impression: Abscess Disposition: Discharge to Home or Self Care Condition: Good Departure Forms: ED Discharge - Pt. Copy, Patient Portal Self Enrollment Instructions: Skin Abscess Diet: other - as per your fire patrol Activity: other - as per your fire patrol Referrals: Dominique Louis NP [Primary Care Provider] - 1-2 Weeks Home Medications: Ambulatory Orders Acetamin W/Cod #3 Tab [Tylenol w/CODEINE #3] 1 ea PO Q6HR PRN #40 tab 06/18/18 Amoxicillin [Amoxil] 500 mg PO Q8HRS #30 cap 06/18/18 Control Pill 06/18/18 Clindamycin HCl 150 mg PO TID 7 Days #21 cap 10/19/18 Additional Instructions: Call your primary care providers Tuesday morning for follow up instructions. This includes your fire patrol. Return to the E.R. for temperature greater than 100.3.
[2018-11-12 05:16] VITALS: BP 99/62; O2SAT 97
[2018-11-12] MEDS ORDERED: ACETAMINOPHEN 325 MG TAB PO ONE (05:34)
== END 2018-11-12 05:42 | disposition home or self-care (01) ==
LOC: ER 03:46
DX: O99.719 Diseases of the skin and subcutaneous tissue complicating pregnancy, unspecified trimester (principal); L02.411 Cutaneous abscess of right axilla; B95.62 Methicillin resistant Staphylococcus aureus infection as the cause of diseases classified elsewhere; Z87.891 Personal history of nicotine dependence; Z3A.00 Weeks of gestation of pregnancy not specified